=== PATIENT | male | born 1965 | race Caucasian/White ===

== ENCOUNTER 2022-05-15 08:49 | Day surgery (SDC) | payer MEDICAID ==
[~2022-05-15] VITALS: Ht 157.5 cm; Wt 54.5 kg
[~2022-05-15 08:49] MED LIST: HYDR28CR14 TOP; MIDAZolam 1 MG/ML 5ML VIAL ONE; diphenhydrAMINE 50 mg/ml inj ONE; fentaNYL/PF 50MCG/1 ML 2ML syringe ONE
[2022-05-15 09:25] VITALS: BP 137/80
[2022-05-15] MEDS ORDERED: LUBI8CAP PO (09:29)
[2022-05-15] MEDS ORDERED: BACL10TA PO (09:30)
[2022-05-15] MEDS ORDERED: NAPR-56 PO (09:31)
[2022-05-15] MEDS ORDERED: PHEN100C12 PO (09:33)
[2022-05-15 10:26] VITALS: BP 129/89
[2022-05-15 10:36] VITALS: BP 121/81
[2022-05-15 10:46] VITALS: BP 124/81
[2022-05-15 10:56] VITALS: BP 131/74
== END 2022-05-15 11:07 | disposition home or self-care (01) ==
LOC: GI LAB 08:49
PROVIDERS: ATTEND Internal Medicine Gastroenterology
DX: Z12.11 Encounter for screening for malignant neoplasm of colon (principal)
CPT/HCPCS: 45330; J2250; J3010; J7030; Z7512; 99152; J1200

== ENCOUNTER 2022-05-16 15:11 | Day surgery (SDC) | payer MEDICAID ==
[~2022-05-16] VITALS: Ht 157.5 cm; Wt 54.5 kg
[~2022-05-16 15:11] MED LIST changes: +BACL10TA PO; -HYDR28CR14 TOP; +LUBI8CAP PO; -MIDAZolam 1 MG/ML 5ML VIAL ONE; +NAPR-56 PO; +PHEN100C12 PO; -diphenhydrAMINE 50 mg/ml inj ONE; -fentaNYL/PF 50MCG/1 ML 2ML syringe ONE
[2022-05-16 15:30] VITALS: BP 137/80
[2022-05-16] MEDS ORDERED: diphenhydrAMINE 50 mg/ml inj ONE (16:26)
[2022-05-16] MEDS ORDERED: MIDAZolam 1 MG/ML 5ML VIAL ONE (16:38)
[2022-05-16] MEDS ORDERED: fentaNYL/PF 50MCG/1 ML 2ML syringe ONE (16:38)
[2022-05-16 17:05] VITALS: BP 152/92
[2022-05-16 17:15] VITALS: BP 158/86
[2022-05-16 17:25] VITALS: BP 150/82
[2022-05-16 17:35] VITALS: BP 148/61
== END 2022-05-16 18:10 | disposition home or self-care (01) ==
LOC: GI LAB 15:11
PROVIDERS: ATTEND Internal Medicine Gastroenterology
DX: Z12.11 Encounter for screening for malignant neoplasm of colon (principal); K63.89 Other specified diseases of intestine
CPT/HCPCS: 45378; J1200; J2250; J3010; J7030; Z7512; 99152; 99153; A4620

== ENCOUNTER 2024-04-16 14:04 | Outpatient (CLI) | payer MEDICARE, MEDICAID ==
[2024-04-16 15:09] VITALS: PULSE 83; RESP 16; O2SAT 96
== END 2024-04-16 23:59 | disposition home or self-care (01) ==
LOC: RT 14:04
PROVIDERS: ATTEND Internal Medicine
DX: R94.2 Abnormal results of pulmonary function studies (principal); R05.9 Cough, unspecified
CPT/HCPCS: 71046; 94010; 94760